=== PATIENT | male | born 1970 | race Caucasian/White ===

== ENCOUNTER 2017-11-12 12:40 | Emergency (ER) | payer OTHER ==
[~2017-11-12] VITALS: Ht 190.5 cm; Wt 176.9 kg
[~2017-11-12 12:40] MED LIST: DICLOFENAC; METFORMIN HCL500 MG PO; NAPROXEN250 MG PO
[2017-11-12 14:25] LABS: BASOPHILS # (AUTO) 0.1 (0.0-0.1); BASOPHILS % 0.7 % (0.0-1.0); EOSINOPHILS # (AUTO) 0.3 (0.0-0.4); EOSINOPHILS % 3.9 % (0.0-6.0); HEMATOCRIT 47.1 % (38.2-49.6); HEMOGLOBIN 15.9 g/dL (14.0-18.0); LYMPHOCYTES # (AUTO) 2.6 (1.0-3.2); LYMPHOCYTES % 33.9 % (18.0-39.1); MEAN CORPUSCULAR HEMOGLOBIN 30.7 pg (28-32); MEAN CORPUSCULAR HGB CONC 33.8 g/dL (31-35); MEAN CORPUSCULAR VOLUME 90.9 fL (81-99); MONOCYTES # (AUTO) 0.4 (0.2-0.8); NEUTROPHILS # (AUTO) 4.2 (2.1-6.9); NEUTROPHILS % 56.2 % (38.7-80.0); PLATELET COUNT 205 x10e3/uL (140-360); RED BLOOD COUNT 5.18 x10e6/uL (4.3-5.7); RED CELL DISTRIBUTION WIDTH 12.5 % (11.7-14.4)
[2017-11-12 14:38] LABS: INR 2.4; PROTHROMBIN TIME 24.6 seconds (11.9-14.5)
[2017-11-12 14:39] LABS: PARTIAL THROMBOPLASTIN TIME 46.5 seconds (23.8-35.5)
[2017-11-12 14:50] LABS: ALANINE AMINOTRANSFERASE 63 IU/L (0-55); ALBUMIN/GLOBULIN RATIO 1.1 (0.8-2.0); ALKALINE PHOSPHATASE 82 IU/L (40-150); ANION GAP 15.7 mmol/L (8-16); BLOOD UREA NITROGEN 11 mg/dL (7-26); BUN/CREATININE RATIO 10 (6-25); CALCIUM 9.7 mg/dL (8.4-10.2); CARBON DIOXIDE 24 mmol/L (22-29); CHLORIDE 105 mmol/L (98-107); CREATINE KINASE 228 IU/L (30-200); CREATININE, SERUM 1.07 mg/dL (0.72-1.25); EST GLOMERULAR FILTRATION RATE > 60 ML/MIN (60-); GLUCOSE 186 mg/dL (74-118); MAGNESIUM 1.9 MG/DL (1.3-2.1); POTASSIUM 3.7 mmol/L (3.5-5.1); SODIUM 141 mmol/L (136-145)
[2017-11-12] MEDS ORDERED: ONDANSETRON HCL INJ 2 MG/ML VIAL IV STA (14:55)
[2017-11-12] MEDS ORDERED: MORPHINE SULFATE 2 MG/ML SYR IV STA (14:55)
--- NOTE | 2017-11-12 16:18 | Diagnostic Imaging Report ---
EXAMINATION: CT of the chest with contrast, PE protocol. TECHNIQUE: Spiral CT images of the chest were performed from the lung apices through the level of the adrenal glands after the IV administration of 150 cc of Isovue 370. Thin section reconstructions were obtained with special concentration on the pulmonary arteries. Coronal and sagittal reformatted images were also performed. COMPARISON: <none> CLINICAL HISTORY:Chest pain and shortness of breath, history of DVT DISCUSSION: Exam mildly limited due to soft tissue attenuation and suboptimal contrast bolus timing. . Lungs: No filling defects are identified in the main, right or left pulmonary arteries to their first order branches, to suggest pulmonary embolism. Unable to assess distal segmental and subsegmental levels. 4 mm calcified granuloma in the superior segment of the left lower lobe (series 3, image 43) (. No nodules, masses or consolidation. Airways: <The major airways are clear, without unremarkable lesions.> Pleura: <There is no evidence of pleural effusion or pneumothorax.> Heart and mediastinum: Thyroid is unremarkable. Heart size is normal. No pericardial effusion. Aorta is nonaneurysmal. Main pulmonary artery is normal in caliber. Lymph nodes: No mediastinal, hilar or axillary adenopathy. Abdomen: The visualized portions of the abdomen show diffuse hepatic steatosis. Mild to moderate splenomegaly, measuring 15 cm in AP diameter. Visualized pancreas and adrenal glands are unremarkable. Lap band in place in the proximal stomach, which show satisfactory orientation. Bones and soft tissues: No aggressive lytic lesions. Mild degenerative changes in the thoracic spine. Soft tissues are grossly unremarkable. IMPRESSION: 1. Exam limited by soft tissue attenuation is suboptimal contrast bolus timing. No CT evidence of pulmonary emboli to the first order branches. Unable to assess distal segmental and subsegmental levels. 2. Lungs are essentially clear. 3. Diffuse hepatic steatosis. 4. Mild to moderate splenomegaly. Signed by: Dr. Evens Quintana M.D. on 11/12/2017 4:15 PM
[2017-11-12] MEDS ORDERED: SODIUM CHLORIDE 0.9% 50ML 100 ML ONE (16:49)
[2017-11-12] MEDS ORDERED: IOPAMIDOL 370 MG/ML 200 ML INFUS..BTL INJ ONE (16:49)
[2017-11-12] MEDS ORDERED: TYLENOL WITH C1 EACH PO (17:05)
== END 2017-11-12 17:20 | disposition home or self-care (01) ==
LOC: ER 12:40
DX: R07.9 Chest pain, unspecified (principal); E11.9 Type 2 diabetes mellitus without complications; E66.9 Obesity, unspecified; Z86.718 Personal history of other venous thrombosis and embolism
CPT/HCPCS: 36415; 71260; 80053; 82550; 82553; 82948; 83735; 84484; 85025; 85610; 85730; 93005; 99284; J2270; J2405; Q9967

== ENCOUNTER → 2019-02-17 | Day surgery (SDC) | payer OTHER ==
--- NOTE | 2019-02-14 12:17 | Diagnostic Imaging Report ---
Chest, PA and lateral. History: Preoperative evaluation, foot surgery. Comparison: None available. Discussion: The cardiomediastinal silhouette and pulmonary vasculature are within normal limits. The lungs are clear without evidence of consolidation or effusion. There are no acute osseous abnormalities. IMPRESSION: No radiographic evidence of acute cardiopulmonary abnormality. Signed by: Ibrahima Ramires MD on 02/14/2019 12:14 PM
[2019-02-14 12:29] LABS: ANION GAP 14.1 mmol/L (8-16); BLOOD UREA NITROGEN 9 mg/dL (7-26); BUN/CREATININE RATIO 9 (6-25); CALCIUM 9.8 mg/dL (8.4-10.2); CARBON DIOXIDE 26 mmol/L (22-29); CHLORIDE 99 mmol/L (98-107); CREATININE, SERUM 1.05 mg/dL (0.72-1.25); EST GLOMERULAR FILTRATION RATE > 60 ML/MIN (60-); GLUCOSE 194 mg/dL (74-118); POTASSIUM 4.1 mmol/L (3.5-5.1); SODIUM 135 mmol/L (136-145)
[~2019-02-17] MED LIST changes: +ACETAMINOPHEN 1000 MG/100 ML IV ONE; +BUPIVACAINE HCL 0.5% INJ 30 ML VIAL INJ ONE; +BUPIVACAINE LIPOSOME/PF 266 MG/20 ML IJ ONE; +CEFAZOLIN SOD 1 GM VIAL ONE; +CEFAZOLIN SOD 1 GM/NS 50ML 50 ML IV ONE; +CRESTOR10 MG PO; +FENTANYL CITRATE/PF 100MCG/2 ML INJ ONE; +FUROSEMIDE40 MG PO; +GLIPIZIDE-METF1 EAC1 PO; +GLYCOPYRROLATE INJ 0.2 MG/ML VIAL ONE; +HYDROMORPHONE 1MG/1ML INJ ONE; +INVOKANA300 MG PO; +KETOROLAC TROMETHAMINE 30 MG/ML VIAL ONE; +LIDOCAINE HCL 2% LOCAL INJ 5 ML SDV VIAL INJ ONE; +LISINOPRIL2.5 MG PO; +MIDAZOLAM HCL 2 MG/2 ML VIAL ONE; +NEOSTIGMINE 5 MG/5ML SYR ONE; +ONDANSETRON HCL INJ 2MG/ML 2ML 2 MG/ML VIAL ONE; +OXYCODONE/ACETAMINOPHEN 5-325 1 EACH TABLET ONE; +PROPOFOL IV EMULSION 10 MG/ML 20 ML VIAL ONE; +ROCURONIUM BROMIDE 10 MG/ML 5ML VIAL ONE; +SEVOFLURANE INHAL SOLN 250 ML PEN BTL ONE; +SUCCINYLCHOLINE CHLORIDE 20 MG/ML 10ML VIAL ONE; +TYLENOL WITH C1 EACH PO; +XARELTO20 MG PO
--- OUTSIDE RECORDS SUMMARY | 2019-02-17 05:15 | XMS REPORT ---
Author Author [facility] Address Unknown Phone Unavailable Care Team Providers Care Expressive Music Therapist Name Role Phone Floyd HILARIO Unavailable Unavailable DUY PARSONS Unavailable Unavailable Teri DAVID Unavailable Unavailable Problems This patient has no known problems. Allergies, Adverse Reactions, Alerts This patient has no known allergies or adverse reactions. Medications This patient has no known medications. Results Test Description Test Time Test Comments Text Results Atomic Results Result Comments CHEST 2 VIEWS 2019-02-14 12:13:00 [place] [address] Patient Name: BERNIE KUMAR JR MR #: [id number] : 1970 Age/Sex: 48/M Req #: [id number] Adm Physician: Ordered by: ANGEL HILARIO DPM Report #: [id number] Location: OR Room/Bed: Procedure: [id number] DX/CHEST 2 VIEWS Exam Date: 02/14/19 Exam Time: 1200 REPORT STATUS: Signed Chest, PA and lateral. History: Preoperative evaluation, foot surgery. Comparison: None available. Discussion: The cardiomediastinal silhouette and pulmonary vasculature are within normal limits. The lungs are clear without evidence of consolidation or effusion. There are no acute osseous abnormalities. IMPRESSION: No radiographic evidence of acute cardiopulmonary abnormality. Signed by: Ibrahima Girard MD on 02/14/2019 12:14 PM Dictated By: IBRAHIMA GIRARD MD 121 Transcribed By: SUKH on 02/14/19 1214 COPY TO: ANGEL HILARIO DPM US TESTICULAR DOPPLER LTD 2018-12-30 12:51:00 [place] [address] Patient Name: BERNIE KUMAR JR MR #: [id number] : 1970 Age/Sex: 48/M Req #: [id number] Adm Physician: Ordered by: DUY PARSONS DO Report #: [id number] Location: US Room/Bed: Procedure: [id number] US/US TESTICULAR DOPPLER LTD Exam Date: 12/30/18 Exam Time: 1218 REPORT STATUS: Signed Exam: Testicular ultrasound. Clinical History: Acute scrotal swelling Findings: Sonographic evaluation of the testicles. The testes are normal in echogenicity and symmetric and blood flow without intratesticular mass. Right testicle: The right testicle measures 5.6 x 2.8 x 3.8 cm. Trace right hydrocele. No right varicocele. The right epididymis measures 1.7 x 1.3 x 1.2 cm and appears unremarkable. Left testicle: The left testicle measures 5.1 x 2.7 x 3.8 cm. Trace left hydrocele. The left epididymis measures 1.8 x 1.1 x 1.3 cm and appears unremarkable. There is extensive left scrotal soft tissue edema which corresponds with the area of palpable abnormality. There is no focal mass or fluid collection in this area. Impression: No testicular torsion. No intratesticular mass. The area of palpable abnormality is associated with extensive left scrotal soft tissue edema without focal mass or fluid collection. Signed by: Sandy Wise MD on 12/30/2018 12:54 PM Dictated By: SANDY WISE MD 1254 Transcribed By: SUKH on 12/30/18 1254 COPY TO: DUY PARSONS DO TESTICULAR 2018-12-30 12:51:00 [place] [address] Patient Name: BERNIE KUMAR JR MR #: [id number] : 1970 Age/Sex: 48/M Req #: [id number] Adm Physician: Ordered by: DUY PARSONS DO Report #: [id number] Location: Room/Bed: Procedure: [id number] US/US TESTICULAR Exam Date: 12/30/18 Exam Time: 1218 REPORT STATUS: Signed Exam: Testicular ultrasound. Clinical History: Acute s crotal swelling Findings: Sonographic evaluation of the testicles. The testes are normal in echogenicity and symmetric and blood flow without intratesticular mass. Right testicle: The right testicle measures 5.6 x 2.8 x 3.8 cm. Trace right hydrocele. No right varicocele. The right epididymis measures 1.7 x 1.3 x 1.2 cm and appears unremarkable. Left testicle: The left testicle measures 5.1 x 2.7 x 3.8 cm. Trace left hydrocele. The left epididymis measures 1.8 x 1.1 x 1.3 cm and appears unremarkable. There is extensive left scrotal soft tissue edema which corresponds with the area of palpable abnormality. There is no focal mass or fluid collection in this area. Impression: No testicular torsion. No intratesticular mass. The area of palpable abnormality is associated with extensive left scrotal soft tissue edema without focal mass or fluid collection. Signed by: Sandy Wise MD on 12/30/2018 12:54 PM Dictated By: SANDY WISE MD 1251 Transcribed By: SUKH on 12/30/18 1254 COPY TO: DUY PARSONS DO CT CHEST W 2017-11-12 16:07:00 [place] [address] Patient Name: BERNIE KUMAR JR MR #: [id number] : 1970 Age/Sex: 47/M [id number] Req #: [id number] Adm Physician: Ordered by: SENDY EVANS CUSTOMER CARE REPRESENTATIVE Report #: [id number] Location: ER Room/Bed: Procedure: [id number] CT/CT CHEST W Exam Date: 11/12/17 Exam Time: 1535 REPORT STATUS: Signed EXAMINATION: CT of the chest with contrast, PE protocol. TECHNIQUE: Spiral CT images of the chest were performed from the lung apices through the level of the adrenal glands after the IV administration of 150 cc of Isovue 370. Thin section reconstructions were obtained with special concentration on the pulmonary arteries. Coronal and sagittal reformatted images were also performed. COMPARISON: <none> CLINICAL HISTORY:Chest pain and shortness of breath, history of DVT DISCUSSION: Exam mildly limited due to soft tissue attenuation and suboptimal contrast bolus timing. . Lungs: No filling defects are identified in the main, right or left pulmonary arteries to their first order branches, to suggest pulmonary embolism. Unable to assess distal segmental and subsegmental levels. 4 mm calcified granuloma in the superior segment of the left lower lobe (series 3, image 43) (. No nodules, masses or consolidation. Airways: <The major airways are clear, without unremarkable lesions.> Pleura: <There is no evidence of pleural effusion or pneumothorax.> Heart and mediastinum: Thyroid is unremarkable. Heart size is normal. No pericardial effusion. Aorta is nonaneurysmal. Main pulmonary artery is normal in caliber. Lymph nodes: No mediastinal, hilar or axillary adenopathy. Abdomen: The visualized portions of the abdomen show diffuse hepatic steatosis. Mild to moderate splenomegaly, measuring 15 cm in AP diameter. Visualized pancreas and adrenal glands are unremarkable. Lap band in place in the proximal stomach, which show satisfactory orientation. Bones and soft tissues: No aggressive lytic lesions. Mild degenerative changes in the thoracic spine. Soft tissues are grossly unremarkable. IMPRESSION: 1. Exam limited by soft tissue attenuation is suboptimal contrast bolus timing. No CT evidence of pulmonary emboli to the first order branches. Unable to assess distal segmental and subsegmental levels. 2. Lungs are essentially clear. 3. Diffuse hepatic steatosis. 4. Mild to moderate splenomegaly. Signed by: Dr. Tanja Quintana M.D. on 11/12/2017 4:15 PM Dictated By: TANJA QUINTANA MD 1615 Transcribed By: SUKH on 11/12/17 1615 COPY TO: SENDY EVANS NP
[2019-02-17 09:15] VITALS: BP 124/75
--- NOTE | 2019-02-17 12:13 | Operative Report ---
DATE OF PROCEDURE: 02/17/2019 SURGEON: Catalina Zamorano DPM PREOPERATIVE DIAGNOSES: 1. Left retrocalcaneal exostosis. 2. Left gastrocnemius equinus. POSTOPERATIVE DIAGNOSES: 1. Left retrocalcaneal exostosis. 2. Left gastrocnemius equinus. PLANNED PROCEDURES: 1. Left retrocalcaneal exostectomy. 2. Gastroc recession, left. BREAD ICER: Dr. Angelica DPM. ANESTHESIA: General with a postoperative block consisting of 20 mL of 0.5% Marcaine plain. ESTIMATED BLOOD LOSS: Less than 10 mL. PATHOLOGY: None. MATERIALS: One Arthrex Achilles SpeedBridge with 4 anchors, 2-0 Vicryl, 3-0 Vicryl, 3-0 nylon. PROCEDURE NOTE: The patient was seen in the preoperative waiting room, where the correct procedure and site were identified. The patient was brought into the operating room, where general anesthesia was initiated and a well-padded pneumatic tourniquet was placed about the patient's left thigh. The patient was then flipped into the prone position and the left foot, ankle, and leg was scrubbed, prepped, and draped in the usual aseptic manner. The left foot, ankle, and leg was exsanguinated with an Esmarch bandage and the pneumatic thigh tourniquet was inflated to 350 mmHg for a total time of approximately 48 minutes. Attention was then directed to the posterior aspect of the patient's left leg, where a 6 cm linear incision made directly at the gastrocnemius aponeurosis. The incision was carried through subcutaneous tissue them from deep or underlying structures. All vital and neurovascular structures were identified, retracted medially and laterally. All bleeders were cauterized or ligated as deemed necessary. The incision was carried down to the level of the gastroc aponeurosis and dissected the paratenon. Utilizing a #15 blade, [id number] type incision was made to the posterior aspect of the calcaneus, 2 cuts distally, 1 cut centrally. The foot was then dorsiflexed to allow for proper stretching of the Achilles tendon and was temporarily attached with a 3-0 Vicryl. The paratenon, fat, and subcutaneous tissue were reapproximated with 3-0 Vicryl and the skin was closed using a running interlocking stitch with 3-0 nylon. Next, attention was directed to the posterior aspect of the calcaneus in the area of the insertion of the Achilles tendon, where a 5 cm linear incision was made. Incision was carried to the subcutaneous tissue them from deep or underlying structures. All vital and neurovascular structures were identified, retracted medially and laterally, and all bleeders were cauterized or ligated as deemed necessary. At this time, an inverted T-incision was made through the Achilles tendon at the level of the attachment and reflected of all degenerated tendon to allow for good visualization of the posterior aspect of the calcaneus. A large retrocalcaneal exostosis with large superior fragment extending dorsally over the top of the posterior aspect of the calcaneus was debrided and excised. Utilizing an osteotome and mallet and a bur, the posterior aspect of the calcaneus was remodeled to anatomic alignment. Next, the degenerated tendon was debrided of all devitalized tissue. Next, per manufacture protocol, 4 drill holes were placed in the posterior aspect of the calcaneus and tapped. The 2 proximal bone anchors were placed. The suture was passed through the tendon into the distal row of the bone anchors per manufacture protocol with crossing wires cut and it was noted to be in anatomic tension. The wound was then copiously irrigated with sterile saline. Deep tissues were reapproximated with 3-0 Vicryl, subcutaneous tissue 3-0 Vicryl, and the skin was closed using simple interrupted sutures with 3-0 nylon. The wound was dressed with Adaptic, 4x4s, Kerlix, cast padding, posterior splint, 4-inch Abebe wrap, and a 6-inch Abebe wrap. The patient tolerated the procedure and anesthesia well. The patient was transferred to the postoperative recovery room with vital signs stable and vascular status intact. The patient was monitored there for a short period of time before being sent home with the following written and oral instructions: 1. Keep the dressing clean, dry, and intact. 2. The patient is to remain nonweightbearing to the left lower extremity to avoid any ambulation until being seen in the office. 3. The patient is given the office number and instructed to contact us if any problems arise. Catalina Zamorano DPM MAF/MODL /[id number]
== END | disposition home or self-care (01) ==
LOC: OR 05:12
PROVIDERS: ATTEND Podiatrist Foot & Ankle Surgery
DX: M77.32 Calcaneal spur, left foot (principal); M21.6X2 Other acquired deformities of left foot; E11.9 Type 2 diabetes mellitus without complications; I10 Essential (primary) hypertension; E66.01 Morbid (severe) obesity due to excess calories; E78.5 Hyperlipidemia, unspecified; Z01.810 Encounter for preprocedural cardiovascular examination; Z01.812 Encounter for preprocedural laboratory examination; Z01.818 Encounter for other preprocedural examination; Z79.02 Long term (current) use of antithrombotics/antiplatelets; Z79.84 Long term (current) use of oral hypoglycemic drugs
CPT/HCPCS: 27687; 28118; 36415 ×2; 71046; 80048; 82948; 93005; C1713; J0131; J0330; J0690 ×2; J1170; J1885; J2001; J2250; J2405; J2704; J3010

== ENCOUNTER → 2019-11-18 | Day surgery (SDC) | payer OTHER ==
[2019-11-15 10:39] LABS: BLOOD UREA NITROGEN 8 mg/dL (7-26); BUN/CREATININE RATIO 9 (6-25); CALCIUM 8.7 mg/dL (8.4-10.2); CARBON DIOXIDE 24 mmol/L (22-29); CHLORIDE 103 mmol/L (98-107); CREATININE, SERUM 0.89 mg/dL (0.72-1.25); EST GLOMERULAR FILTRATION RATE > 60 ML/MIN (60-); GLUCOSE 178 mg/dL (74-118); SODIUM 140 mmol/L (136-145)
[~2019-11-18] MED LIST changes: -ACETAMINOPHEN 1000 MG/100 ML IV ONE; -BUPIVACAINE LIPOSOME/PF 266 MG/20 ML IJ ONE; +DEXAMETHASONE SOD PHOS INJ 4 MG/ML VIAL ONE; -GLYCOPYRROLATE INJ 0.2 MG/ML VIAL ONE; -HYDROMORPHONE 1MG/1ML INJ ONE; -NEOSTIGMINE 5 MG/5ML SYR ONE; -OXYCODONE/ACETAMINOPHEN 5-325 1 EACH TABLET ONE; -ROCURONIUM BROMIDE 10 MG/ML 5ML VIAL ONE; -SUCCINYLCHOLINE CHLORIDE 20 MG/ML 10ML VIAL ONE
[2019-11-18 08:50] VITALS: BP 130/71
--- NOTE | 2019-11-18 10:28 | Operative Report ---
DATE OF PROCEDURE: 11/18/2019 SURGEON: Catalina Zamorano DPM PREOPERATIVE DIAGNOSIS: Left ankle fracture, medial malleolus. POSTOPERATIVE DIAGNOSIS: 1. Left ankle fracture, medial malleolus. 2. Left ankle open reduction and internal fixation, medial malleolus. SURGEON: Teri Dominguez DPM (Char[place]). LIQUEFIER: Catalina Zamorano DPM. ANESTHESIA: General with a postoperative block consisting of 15 mL of 0.5% Marcaine plain mixed with 1 mL of dexamethasone phosphate. HEMOSTASIS: Pneumatic thigh tourniquet set at 350 mmHg for a total time approximately 30 minutes. MATERIALS: Two 4.0 mm x 50 mm partially threaded compression screws, Synthes, 3-0 Vicryl, 3-0 nylon. ESTIMATED BLOOD LOSS: Less than 10 mL. PATHOLOGY: None. PROCEDURE NOTE: The patient was seen in the preoperative waiting room, where the correct procedure and site were identified. The patient was brought into the operating room and placed on the operating table in the supine position. General anesthesia was initiated. At this time, a well-padded pneumatic tourniquet was placed about the patient's left thigh. The left foot, ankle, and leg was then scrubbed, prepped, and draped in the usual aseptic manner. The left foot, ankle, and leg was exsanguinated with an Esmarch bandage and a pneumatic thigh tourniquet was inflated to 350 mmHg for a total time of approximately 30 minutes. Attention was directed to the medial aspect of the patient's left ankle, where a 5 cm linear incision was made directly over the medial malleolus. Incision was carried through the subcutaneous tissues them from deep or underling structures. All vital and neurovascular structures were identified, retracted medially and laterally, and all bleeders were cauterized or ligated as deemed necessary. Attention was directed to the medial malleolus, where an incision was made over the periosteum to allow for good visualization of the fracture site. Utilizing techniques of manipulation and distraction, the ankle fracture was reduced into proper anatomic alignment. It was confirmed via intraoperative fluoroscopy. Next, utilizing manufacture protocol, two Synthes 4.0 cannulated by 50 mm partially-threaded compression screws were placed across the fracture site and confirmed to be in correct position and location via intraoperative fluoroscopy. The wound was then copiously irrigated with sterile saline. Deep tissue was reapproximated with 3-0 Vicryl, subcutaneous tissue with 3-0 Vicryl, and the skin was closed using simple interrupted sutures with 3-0 nylon. The incision site was then dressed with Adaptic, 4x4s, Kerlix, Abebe wrap, 4 x 30 posterior splint, 4-inch Abebe wrap, and a 6-inch Abebe wrap. The patient tolerated the procedure and anesthesia well. The patient was transferred to postoperative recovery unit with vital signs stable and vascular status intact. The patient was monitored there for a short period of time before being sent home with the following written and oral instructions: 1. Keep the dressing clean, dry, and intact. 2. The patient is to remain nonweightbearing to the left lower extremity to avoid any ambulation until being seen in the office. 3. The patient is given the office number and instructed to contact us if any problems arise. Dictated by Catalina Zamorano DPM S ANGEL LUIS Bourne (Charley)/MODL /[id number]
== END | disposition home or self-care (01) ==
LOC: OR 05:15
PROVIDERS: ATTEND Podiatrist Foot & Ankle Surgery
DX: S82.52XA Displaced fracture of medial malleolus of left tibia, initial encounter for closed fracture (principal); E11.9 Type 2 diabetes mellitus without complications; I10 Essential (primary) hypertension; E78.5 Hyperlipidemia, unspecified; Z01.810 Encounter for preprocedural cardiovascular examination; Z01.812 Encounter for preprocedural laboratory examination; Z11.59 Encounter for screening for other viral diseases; Z79.84 Long term (current) use of oral hypoglycemic drugs
CPT/HCPCS: 27766; 36415 ×2; 80048; 82948; 93005; J0690 ×2; J1100; J1885; J2001; J2250; J2405; J2704; J3010; U0002; C1713

== ENCOUNTER 2020-05-14 15:37 | Observation (INO) | payer OTHER ==
[~2020-05-14] VITALS: Ht 190.5 cm; Wt 156.9 kg
[~2020-05-14 15:37] MED LIST changes: -BUPIVACAINE HCL 0.5% INJ 30 ML VIAL INJ ONE; -CEFAZOLIN SOD 1 GM VIAL ONE; -CEFAZOLIN SOD 1 GM/NS 50ML 50 ML IV ONE; -DEXAMETHASONE SOD PHOS INJ 4 MG/ML VIAL ONE; -DICLOFENAC; +DICLOFENAC PO; -FENTANYL CITRATE/PF 100MCG/2 ML INJ ONE; -KETOROLAC TROMETHAMINE 30 MG/ML VIAL ONE; -LIDOCAINE HCL 2% LOCAL INJ 5 ML SDV VIAL INJ ONE; -MIDAZOLAM HCL 2 MG/2 ML VIAL ONE; -ONDANSETRON HCL INJ 2MG/ML 2ML 2 MG/ML VIAL ONE; -PROPOFOL IV EMULSION 10 MG/ML 20 ML VIAL ONE; -SEVOFLURANE INHAL SOLN 250 ML PEN BTL ONE
[2020-05-14] MEDS ORDERED: ASPIRIN 81 MG CHEW TAB PO ONE (16:15)
[2020-05-14 16:27] LABS: BASOPHILS # (AUTO) 0.1 (0.0-0.1); EOSINOPHILS # (AUTO) 0.2 (0.0-0.4); EOSINOPHILS % 2.2 % (0.0-6.0); HEMATOCRIT 46.6 % (38.2-49.6); HEMOGLOBIN 15.5 g/dL (14.0-18.0); LYMPHOCYTES # (AUTO) 2.5 (1.0-3.2); LYMPHOCYTES % 36.9 % (18.0-39.1); MEAN CORPUSCULAR HEMOGLOBIN 29.5 pg (28-32); MEAN CORPUSCULAR HGB CONC 33.3 g/dL (31-35); MEAN CORPUSCULAR VOLUME 88.8 fL (81-99); MONOCYTES # (AUTO) 0.4 (0.2-0.8); MONOCYTES % 5.2 % (4.4-11.3); NEUTROPHILS # (AUTO) 3.7 (2.1-6.9); NEUTROPHILS % 54.4 % (38.7-80.0); PLATELET COUNT 215 x10e3/uL (140-360); RED BLOOD COUNT 5.25 x10e6/uL (4.3-5.7); RED CELL DISTRIBUTION WIDTH 12.6 % (11.7-14.4)
[2020-05-14 16:49] LABS: ALANINE AMINOTRANSFERASE 46 IU/L (0-55); ALBUMIN 4.1 g/dL (3.5-5.0); ALBUMIN/GLOBULIN RATIO 1.1 (0.8-2.0); ALKALINE PHOSPHATASE 78 IU/L (40-150); ANION GAP 15.7 mmol/L (8-16); BLOOD UREA NITROGEN 6 mg/dL (7-26); BUN/CREATININE RATIO 7 (6-25); CALCIUM 9.1 mg/dL (8.4-10.2); CARBON DIOXIDE 26 mmol/L (22-29); CHLORIDE 102 mmol/L (98-107); CREATINE KINASE 147 IU/L (30-200); CREATININE, SERUM 0.85 mg/dL (0.72-1.25); EST GLOMERULAR FILTRATION RATE > 60 ML/MIN (60-); GLUCOSE 147 mg/dL (74-118); POTASSIUM 3.7 mmol/L (3.5-5.1); SODIUM 140 mmol/L (136-145)
[2020-05-14 16:59] LABS: PARTIAL THROMBOPLASTIN TIME 28.6 seconds (23.8-35.5); PROTHROMBIN TIME 13.8 seconds (11.9-14.5)
[2020-05-14] MEDS ORDERED: FENTANYL CITRATE/PF 100MCG/2 ML INJ ONE (17:54)
[2020-05-14] MEDS ORDERED: MIDAZOLAM HCL 2 MG/2 ML VIAL ONE ×3 (17:54→18:34)
[2020-05-14] MEDS ORDERED: SODIUM CHLORIDE 0.9% 1000ML 1,000 ML ONE (17:55)
[2020-05-14] MEDS ORDERED: VANCOMYCIN 1GM/NS 250 ML 250 ML ONE (17:55)
[2020-05-14] MEDS ORDERED: SODIUM CHLORIDE 0.9% 1000ML 2,000 ML ONE (18:06)
[2020-05-14] MEDS ORDERED: LIDOCAINE HCL 2% LOCAL 20 ML VIAL ONE (18:06)
[2020-05-14] MEDS ORDERED: CEFAZOLIN SOD 1 GM VIAL ONE (18:08)
[2020-05-14] MEDS ORDERED: MORPHINE SULFATE INJ 2 MG/ML SYR IV PRN (19:45)
[2020-05-14 20:00] VITALS: BP 111/76
[2020-05-14 21:00] VITALS: BP 111/76
[2020-05-14 22:00] VITALS: BP 111/76
[2020-05-14] MEDS ORDERED: CEFAZOLIN SOD 1 GM VIAL IV SCH (22:00)
[2020-05-14] MEDS ORDERED: OZEMPIC0.25 MG/0. SC (23:21)
[2020-05-14] MEDS ORDERED: GLIPIZIDE ER5 MG PO (23:21)
[2020-05-14] MEDS ORDERED: JARDIANCE25 MG PO (23:21)
[2020-05-14] MEDS ORDERED: METFORMIN HCL500 MG PO (23:21)
[2020-05-14] MEDS ORDERED: TRADJENTA5 MG PO (23:21)
[2020-05-15] VITALS: BP 112/77
[2020-05-15] MEDS ORDERED: SODIUM CHLORIDE 0.9% 250ML 250 ML ONE (01:58)
[2020-05-15] MEDS: CEFAZOLIN SOD 2 GM/D5W 50ML 50 ML IV SCH ×2 (02:10→09:19)
[2020-05-15 08:12] VITALS: BP 128/84
[2020-05-15 08:59] VITALS: BP 128/84
[2020-05-15 11:31] VITALS: BP 139/64
[2020-05-15] MEDS ORDERED: MINOCYCLINE HCL50 MG PO (12:56)
[2020-05-15] MEDS ORDERED: ULTRAM50 MG PO (12:56)
== END 2020-05-15 13:38 | disposition home or self-care (01) ==
LOC: ER 16:15 → ERHOLD 19:40 → MED/SURG 19:47
PROVIDERS: ADMIT Internal Medicine Interventional Cardiology; ATTEND Internal Medicine Interventional Cardiology
DX: I44.2 Atrioventricular block, complete (principal); Z20.822 Contact with and (suspected) exposure to COVID-19; Z82.49 Family history of ischemic heart disease and other diseases of the circulatory system; E66.01 Morbid (severe) obesity due to excess calories; Z68.41 Body mass index [BMI] 40.0-44.9, adult
CPT/HCPCS: 33208; 36415 ×2; 71045; 80053; 82550; 82553; 82948 ×2; 83880; 84484; 85025; 85610; 85730; 93005; 99284; C1785; C1898; G0378 ×2; J0690 ×2; J2001; J2250; J3010; J3370; J7030; J7050; U0002; 99152; 99153